=== PATIENT | male | born 1930 | race Caucasian/White ===

== ENCOUNTER 2017-08-24 13:17 | Emergency (ER) | payer OTHER ==
[~2017-08-24] VITALS: Ht 167.6 cm; Wt 88.7 kg
[2017-08-24 15:01] LABS: APPEARANCE CLEAR ((CLEAR)); BILIRUBIN NEGATIVE; BLOOD NEGATIVE; COLOR YELLOW ((YELLOW)); GLUCOSE (STRIP) NEGATIVE; KETONES NEGATIVE; LEUKOCYTES NEGATIVE; NITRITE NEGATIVE; PROTEIN (STRIP) NEGATIVE; SPECIFIC GRAVITY 1.018 (1.000-1.030); UROBILINOGEN 0.2 MG/DL (0.2-1.0)
[2017-08-24 15:07] LABS: HEMATOCRIT 39.9 % (38.0-50.0); HEMOGLOBIN 14.2 G/DL (12.5-16.6); MCH 31.5 PG (29.0-34.0); MCHC 35.6 G/DL (30.0-36.0); MCV 88.5 FL (86-99); PLATELET COUNT 290 K/uL (156-360); RBC DIS.WIDTH-CV 12.7 % (11.8-14.6); RBC DIS.WIDTH-SD 41.2 % (39-53); RED BLOOD COUNT 4.51 M/uL (4.00-5.50); WHITE BLOOD COUNT 14.4 K/uL (4.1-10.2)
[2017-08-24 15:17] LABS: CHLORIDE 94 mEq/L (99-109); POTASSIUM 4.7 mEq/L (3.7-5.4); SODIUM 127 mEq/L (136-147)
[2017-08-24 15:19] LABS: GLUCOSE 105 mg/dL (70-99)
[2017-08-24 15:22] LABS: CREATININE 0.9 mg/dL (0.6-1.3); GFR ESTIMATE (CALCULATED) > 59 mL/min/ (58.99-99999)
[2017-08-24 15:23] LABS: UREA NITROGEN (BUN) 15 mg/dL (9-23)
[2017-08-24 16:31] VITALS: BP 146/97
== END 2017-08-24 16:32 | disposition home or self-care (01) ==
LOC: EME 13:17
PROVIDERS: Physician Assistant
PROC: 3E0234Z Introduction of Serum, Toxoid and Vaccine into Muscle, Percutaneous Approach (ICD-10-PCS; principal; 2017-08-24)
DX: S00.83XA Contusion of other part of head, initial encounter (principal); E87.1 Hypo-osmolality and hyponatremia; W01.198A Fall on same level from slipping, tripping and stumbling with subsequent striking against other object, initial encounter; Y93.01 Activity, walking, marching and hiking; Y92.410 Unspecified street and highway as the place of occurrence of the external cause; Z23 Encounter for immunization; G30.9 Alzheimer's disease, unspecified; F02.80 Dementia in other diseases classified elsewhere, unspecified severity, without behavioral disturbance, psychotic disturbance, mood disturbance, and anxiety; I10 Essential (primary) hypertension; E78.5 Hyperlipidemia, unspecified; F41.9 Anxiety disorder, unspecified; Z95.1 Presence of aortocoronary bypass graft
CPT/HCPCS: 70450; 70486; 80048; 81003; 85027; 99281; 99284; J7040

== ENCOUNTER 2017-09-10 12:15 | Inpatient (IN) | payer OTHER ==
[~2017-09-10] VITALS: Ht 167.6 cm; Wt 90.0 kg
[2017-09-10 12:48] LABS: BASOPHIL (%) 0.2 % (0-1); EOSINOPHIL (%) 0 % (0-5); HEMATOCRIT 40.5 % (38.0-50.0); HEMOGLOBIN 14.5 G/DL (12.5-16.6); IMMATURE GRANULOCYTE (%) 0.4 % (0.0-0.7); LYMPHOCYTE (%) 1.8 % (15-42); LYMPHOCYTE COUNT 0.4 K/uL (1.0-2.8); MCH 31.2 PG (29.0-34.0); MCHC 35.8 G/DL (30.0-36.0); MCV 87.1 FL (86-99); MONOCYTE (%) 7.8 % (3-12); MONOCYTE COUNT 1.8 K/uL (0-0.8); NEUTROPHIL (%) 89.8 % (45-76); NEUTROPHIL COUNT 20.9 K/uL (1.8-6.4); PLATELET COUNT 337 K/uL (156-360); RBC DIS.WIDTH-CV 12.8 % (11.8-14.6); RBC DIS.WIDTH-SD 40.5 % (39-53); RED BLOOD COUNT 4.65 M/uL (4.00-5.50); WHITE BLOOD COUNT 23.3 K/uL (4.1-10.2)
[2017-09-10 12:53] LABS: INTER. NORMALIZED RATIO 1.1
[2017-09-10 12:57] LABS: ALBUMIN 4.1 g/dL (3.2-4.8); CHLORIDE 98 mEq/L (99-109); MAGNESIUM 2.3 mg/dL (1.3-2.7); POTASSIUM 4.3 mEq/L (3.7-5.4); SODIUM 131 mEq/L (136-147)
[2017-09-10 12:59] LABS: GLUCOSE 167 mg/dL (70-99); TOTAL PROTEIN 7.3 g/dL (6.4-8.3)
[2017-09-10 13:01] LABS: TOTAL BILIRUBIN 1.4 mg/dL (0.0-1.0)
[2017-09-10 13:03] LABS: ALKALINE PHOSPHATASE 95 IU/L (3-129); CREATININE 1.2 mg/dL (0.6-1.3); GFR ESTIMATE (CALCULATED) > 59 mL/min/ (58.99-99999)
[2017-09-10 13:04] LABS: AST (GOT) 151 IU/L (2-34); UREA NITROGEN (BUN) 23 mg/dL (9-23)
[2017-09-10 13:08] LABS: TROP-I INTERPRETATION NEGATIVE; TROPONIN-I 0.08 ng/mL (0.0-0.30)
[2017-09-10 13:11] LABS: CK-MB 87.5 ng/mL (0.0-4.9)
[2017-09-10 13:41] LABS: CKMB RELATIVE INDEX 1.4 (0.0-3.9); CREATINE KINASE 6064 IU/L (1-294); TOTAL CK 6064 IU/L (1-294)
[2017-09-10 13:54] LABS: ALT (GPT) 47 IU/L (3-49)
[2017-09-10] MEDS ORDERED: ZOCOR40 MG PO (14:14)
[2017-09-10] MEDS ORDERED: BUSPAR15 MG PO (14:15)
[2017-09-10] MEDS ORDERED: ZOLOFT50 MG PO (14:15)
[2017-09-10 16:21] VITALS: BP 156/88
[2017-09-10 17:25] LABS: APPEARANCE SL.HAZY ((CLEAR)); BILIRUBIN NEGATIVE; BLOOD LARGE; COLOR YELLOW ((YELLOW)); GLUCOSE (STRIP) NEGATIVE; KETONES 5; LEUKOCYTES NEGATIVE; NITRITE NEGATIVE; PROTEIN (STRIP) 100; UROBILINOGEN 0.2 MG/DL (0.2-1.0)
[2017-09-10 17:38] LABS: BACTERIA RARE /HPF; EPITHELIAL CELLS RARE /HPF; MUCUS TRACE /LPF; RED BLOOD CELLS 0-5 /HPF (0-5); UCUL ADDED? NO; WHITE BLOOD CELLS 0-5 /HPF (0-5)
[2017-09-10 20:00] VITALS: BP 119/58
[2017-09-11] VITALS: BP 153/89
[2017-09-11 04:00] VITALS: BP 151/91
[2017-09-11 05:24] LABS: HEMATOCRIT 37.3 % (38.0-50.0); HEMOGLOBIN 12.8 G/DL (12.5-16.6); MCH 30.7 PG (29.0-34.0); MCHC 34.3 G/DL (30.0-36.0); MCV 89.4 FL (86-99); PLATELET COUNT 272 K/uL (156-360); RBC DIS.WIDTH-CV 13.2 % (11.8-14.6); RED BLOOD COUNT 4.17 M/uL (4.00-5.50); WHITE BLOOD COUNT 15.6 K/uL (4.1-10.2)
[2017-09-11 06:12] LABS: ALBUMIN 3.3 G/DL (3.2-4.8); ALKALINE PHOSPHATASE 66 IU/L (3-129); ALT (GPT) 46 IU/L (3-49); AST (GOT) 160 IU/L (2-34); CHLORIDE 100 MEQ/L (99-109); CREATININE 0.8 MG/DL (0.6-1.3); GFR ESTIMATE (CALCULATED) > 59 mL/min/ (58.99-99999); POTASSIUM 4.2 MEQ/L (3.7-5.4); SODIUM 134 MEQ/L (136-147); TOTAL BILIRUBIN 0.9 MG/DL (0.0-1.0); TOTAL PROTEIN 5.7 G/DL (6.4-8.3); UREA NITROGEN (BUN) 20 mg/dL (9-23)
[2017-09-11 06:18] LABS: CREATINE KINASE 5489 IU/L (1-294); GLUCOSE 116 mg/dL (70-99)
[2017-09-11 08:03] VITALS: BP 133/64
[2017-09-11 11:40] VITALS: BP 116/66
[2017-09-11 16:50] VITALS: BP 123/65
[2017-09-11 20:00] VITALS: BP 106/60
[2017-09-12 00:41] VITALS: BP 116/64
[2017-09-12 07:17] LABS: HEMATOCRIT 34.4 % (38.0-50.0); MCH 30.9 PG (29.0-34.0); MCHC 34.9 G/DL (30.0-36.0); MCV 88.7 FL (86-99); PLATELET COUNT 256 K/uL (156-360); RBC DIS.WIDTH-CV 13.1 % (11.8-14.6); RBC DIS.WIDTH-SD 42.4 % (39-53); RED BLOOD COUNT 3.88 M/uL (4.00-5.50); WHITE BLOOD COUNT 12.1 K/uL (4.1-10.2)
[2017-09-12 07:57] LABS: CHLORIDE 97 MEQ/L (99-109); CREATININE 0.7 MG/DL (0.6-1.3); GFR ESTIMATE (CALCULATED) > 59 mL/min/ (58.99-99999); GLUCOSE 128 mg/dL (70-99); POTASSIUM 3.7 MEQ/L (3.7-5.4); SODIUM 130 MEQ/L (136-147); UREA NITROGEN (BUN) 13 mg/dL (9-23)
[2017-09-12 08:01] LABS: CREATINE KINASE 2358 IU/L (1-294)
[2017-09-12 08:19] VITALS: BP 130/65
[2017-09-12 12:00] VITALS: BP 134/70
[2017-09-12 20:00] VITALS: BP 120/65
[2017-09-13 00:23] VITALS: BP 157/75
[2017-09-13 06:33] LABS: MCH 30.9 PG (29.0-34.0); MCHC 34.3 G/DL (30.0-36.0); MCV 90.2 FL (86-99); PLATELET COUNT 257 K/uL (156-360); RBC DIS.WIDTH-CV 13.2 % (11.8-14.6); RBC DIS.WIDTH-SD 43.1 % (39-53); RED BLOOD COUNT 3.88 M/uL (4.00-5.50); WHITE BLOOD COUNT 9.2 K/uL (4.1-10.2)
[2017-09-13 07:08] LABS: CHLORIDE 100 MEQ/L (99-109); CREATININE 0.6 MG/DL (0.6-1.3); GFR ESTIMATE (CALCULATED) > 59 mL/min/ (58.99-99999); GLUCOSE 106 mg/dL (70-99); POTASSIUM 3.8 MEQ/L (3.7-5.4); SODIUM 134 MEQ/L (136-147); UREA NITROGEN (BUN) 9 mg/dL (9-23)
[2017-09-13 07:09] LABS: CREATINE KINASE 1110 IU/L (1-294)
[2017-09-13 07:35] VITALS: BP 137/81
[2017-09-13] MEDS ORDERED: TYLENOL REGULA325 MG PO (15:14)
== END 2017-09-13 15:43 | DRG 565 ==
LOC: EME → EDBD 12:15 → 5SOUTH 14:37 → EDOF 14:37 → ENRESERV 14:40 → 5SOUTH 15:43
PROVIDERS: Emergency Medicine; Hospitalist; Physician Assistant
DX: T79.6XXA Traumatic ischemia of muscle, initial encounter (principal); S40.012A Contusion of left shoulder, initial encounter; S40.011A Contusion of right shoulder, initial encounter; W19.XXXA Unspecified fall, initial encounter; Y92.002 Bathroom of unspecified non-institutional (private) residence as the place of occurrence of the external cause; E87.1 Hypo-osmolality and hyponatremia; E86.0 Dehydration; D72.829 Elevated white blood cell count, unspecified; R00.0 Tachycardia, unspecified; M25.551 Pain in right hip; R53.1 Weakness; F03.90 Unspecified dementia, unspecified severity, without behavioral disturbance, psychotic disturbance, mood disturbance, and anxiety; I25.10 Atherosclerotic heart disease of native coronary artery without angina pectoris; I10 Essential (primary) hypertension; M54.9 Dorsalgia, unspecified; E78.5 Hyperlipidemia, unspecified; F41.9 Anxiety disorder, unspecified; E66.9 Obesity, unspecified; Z68.32 Body mass index [BMI] 32.0-32.9, adult; Z95.1 Presence of aortocoronary bypass graft
CPT/HCPCS: 70450; 71045; 73502; 80048; 80053; 81003; 82550; 82550 91; 82553; 83605; 83735; 84484; 85025; 85027; 85610; 85730; 87040; 93005; 97530 GO; 99281; 99285; J1644; J7030; J7040